=== PATIENT | female | born 1955 | race Caucasian/White ===

== ENCOUNTER 2019-09-06 09:33 | Inpatient (IN) ==
[2019-09-06] MEDS ORDERED: HEPARIN IV ONE (12:55)
[2019-09-06] MEDS ORDERED: HEPARIN 25,000 UNITS/D5W 25,000 UNIT/250 ML IV.SOLN IV SCH (13:00)
[2019-09-06] MEDS ORDERED: VITAMIN D PO SCH (13:00)
--- NOTE | 2019-09-06 13:22 | EKG Report ---
Test Performed on : 09/06/2019 1:17:10 PM Test Reason : dyspnea Blood Pressure : / mmHG Vent. Rate : 078 BPM Atrial Rate : 078 BPM P-R Int : 162 ms QRS Dur : 100 ms QT Int : 374 ms P-R-T Axes : 069 058 079 degrees QTc Int : 426 ms Normal sinus rhythm. Normal ECG When compared with ECG of 18-JUL-2019 14:42, (Unconfirmed) Incomplete right bundle branch block is no longer present Confirmed by Dilan RUSSELL, Tapan Tracey ([id number]) on 09/10/2019 9:25:39 AM
--- NOTE | 2019-09-06 13:36 | CARDIOLOGY CONSULTATION ---
DATE: 09/06/2019 DIAGNOSIS: Previous bioprosthetic mitral and aortic valve replacement. Echocardiogram done today revealed LA thrombus, and the patient was subsequently admitted. HISTORY: Ms. Lew is a 63-year-old lady who I had seen in the clinic, and has multiple medical problems as listed below. She had noticed increasing shortness of breath. She has COPD, and has been taking inhalers as well. She has had chronic back and lower back pain as well which has been secondary to degenerative disease. She is otherwise active. There is no history of any orthopnea or paroxysmal nocturnal dyspnea. She was recently seen in the office and set up for an echocardiogram. For echocardiogram, please see detailed echocardiogram report. The patient was noted to have an LA thrombus into the pulmonary veins. Given this, I recommended patient be admitted to the hospital and undergo further testing. The patient is willing to be admitted. REVIEW OF SYSTEMS: A 14-point review of system was done. GI: There is no history of nausea, vomiting, or diarrhea. There is no history of hematemesis or melena. Central nervous system: No focal weakness to suggest a CVA or TIA. : There is no dysuria or hematuria. Respiratory: There is no history of cough, expectoration, or hemoptysis. PAST MEDICAL HISTORY: Status post bioprosthetic mitral valve replacement on 10/09/2015. In addition, she had 19 mm bioprosthetic Trifecta aortic valve replacement as well. Coronary arteries prior to that valve replacement were normal. This was performed at [facility]. Anticoagulation therapy with Coumadin. COPD. Pulmonary arterial hypertension. Tobacco abuse. Minimal carotid disease. Gastroesophageal reflux disease. Chronic back pain. MEDICATIONS: Home medications include: 1. Coumadin as directed. 2. Aspirin 81 mg a day. 3. Metoprolol 25 mg half tablet twice daily. 4. Pravachol 20 mg a day. 5. Spironolactone 25. 6. Lasix 20 mg a day. 7. Omeprazole 20 mg a day. 8. Trazodone 50 mg half a tablet at bedtime. 9. Amitriptyline 50 mg 3 times a day. 10. Symbicort inhalers. 11. Oxygen if needed. ALLERGIES: She is not known to be allergic to any medications. SOCIAL HISTORY: She has history of smoking. There is no history of alcohol abuse. PHYSICAL EXAMINATION: Vital Signs: Blood pressure 110/60. First and second heart sounds were heard. There was faint murmur. Respiratory: Few scattered wheeze. Abdomen: Soft and nontender. There was no guarding or rigidity. Bowel sounds were heard. Central nervous system: Alert and oriented. She was moving all 4 extremities. Extremities: Examination of extremities revealed no pedal edema. ASSESSMENT AND PLAN: Ms. Toro Lew is a 63-year-old lady with history of bioprosthetic mitral valve 27 mm replaced, and aortic valve 19 mm Trifecta valve on 10/09/2015 at [facility]. She has history of COPD, hypertension, gastroesophageal reflux disease, and chronic pain syndrome, who has noticed increasing shortness of breath. She underwent an echocardiogram which revealed an LA thrombus. Please see detailed echocardiogram report. Given this, we will plan: 1. Plan for a transesophageal echocardiogram in the morning. 2. We will get a CBC/BMP serum magnesium levels, and PT/INR. 3. We will place her on IV heparin and hold Coumadin. 4. The LA mass is encroaching on the pulmonary veins as well. We will also obtain a CT scan of her chest with contrast if her kidney function is normal. 5. COPD. Continue with her home medications. 6. Hyperlipidemia. She is on Pravachol. I have not made any changes. 7. Gastroesophageal reflex. She is on omeprazole. Would recommend continuing with omeprazole. 8. Hypertension. Blood pressure is under control. I have not made any changes at the present time. 9. Thank you for the consult. We will follow hospital course. cc: Mick Jimenez MD
[2019-09-06] MEDS ORDERED: ZOFRAN IV PRN (14:07)
[2019-09-06] MEDS ORDERED: TYLENOL PO PRN (14:07)
[2019-09-06 14:32] LABS: INR 4.11
[2019-09-06 14:35] LABS: HEMATOCRIT 33.3 % (37.0-47.0); HEMOGLOBIN 10.5 g/dL (12.0-16.0); MCH 26.3 PG (27-31); MCHC 31.5 g/dL (33-37); MCV 83.3 FL (81-99); MPV 11.8 FL (7.4-10.4); PROTIME 41.2 Seconds (11.0-16.0); RDW 16.5 % (11.5-14.5); WBC 5.52 X1000 (4.8-10.8)
[2019-09-06 14:54] LABS: PTT > 200.0 Seconds (22.3-41.8)
[2019-09-06 14:57] LABS: AGAP 10; BUN 18 mg/dL (8-22); CALCIUM 9.5 mg/dL (8.8-10.2); CHLORIDE 100 mmol/L (98-107); COSMO 279; CREATININE 0.7 mg/dL (0.5-0.9); ESTIMATED GFR > 60; GLUCOSE 117 mg/dL (70-104); MAGNESIUM 2.1 mg/dL (1.5-2.7); POTASSIUM 4.3 mmol/L (3.5-5.1); SODIUM 138 mmol/L (136-145); TCO2 28 mmol/L (25-35)
[2019-09-06 15:07] LABS: FREE T4 1.13 ng/dL (0.93-1.70); TSH 2.09 uIUmL (0.27-4.20)
[2019-09-06 15:09] LABS: HEMOGLOBIN A1C 4.6 % (4.8-6.0)
--- NOTE | 2019-09-06 15:19 | ECHO REPORT ---
ORDER DATE: 09/06/2019 PROCEDURE: 2D echocardiogram. INTERPRETING PHYSICIAN: Dr. Jimenez. ECHOCARDIOGRAPHIC MEASUREMENTS: 1. Interventricular septum 0.8. 2. Left ventricular posterior wall 0.8. 3. Diastolic diameter 4.4 4. Left atrium 2.7. 5. Aorta 3.0. CONCLUSIONS: 1. Normal right ventricular cavity size and function. 2. Normal left ventricular cavity size. Estimated ejection fraction of 65 to 70 percent. 3. Left atrium is enlarged. 4. There is grade 3 diastolic dysfunction. 5. Bioprosthetic valve in the mitral position was stable. 6. Tricuspid valve was normal. 7. Bioprosthetic valve in the aortic position was stable. 8. Tricuspid valve was normal. 9. There is mild tricuspid regurgitation. Peak velocity across the tricuspid valve was 4.5 m/sec. 10. Pulmonary artery systolic pressure of 90 mmHg. There is severe pulmonary arterial hypertension. 11. There is left atrial enlargement. 12. Peak inflow velocity across the mitral valve was 1.9 m/sec. 13. Mitral valve area by pressure half time was 2.5 cm with a mean gradient of 5 mmHg in keeping with bioprosthetic mitral valve. The bioprosthetic mitral valve leaflets are functioning appropriately. 14. Peak velocity across the aortic valve was 3.2 m/sec with a maximum gradient of 40 mmHg. Mean gradient of 18 mmHg. Aortic valve area of 0.8 sq cm in keeping with bioprosthetic aortic valve associated with mild aortic regurgitation. 15. There is a mass noted in the left atrium measuring 1.4 cm x 1.8 cm echodense structure abutting the pulmonary veins seems to be attached as a pedunculated structure near the pulmonary veins. Would recommend a transesophageal echocardiogram to better evaluate the structure. This could be a thrombus as well. 16. There is no pericardial effusion. cc: Mick Jimenez MD [facility]
[2019-09-06] MEDS: ULTRAM PO SCH (15:52)
[2019-09-06 16:25] LABS: UR AMPHETAMINES QUAL NONE DETECTED (NONE DETECT); UR BARBITUATES QUAL NONE DETECTED (NONE DETECT); UR BENZODIAZEPIN QUAL NONE DETECTED (NONE DETECT); UR CANNABINOIDS QUAL NONE DETECTED (NONE DETECT); UR COCAINE QUAL NONE DETECTED (NONE DETECT); UR METHADONE QUAL NONE DETECTED (NONE DETECT); UR OPIATES QUAL NONE DETECTED (NONE DETECT); UR OXYCODONE QUAL NONE DETECTED (NONE DETECT); UR PCP QUAL NONE DETECTED (NONE DETECT)
--- NOTE | 2019-09-06 16:33 | Diag Imaging Result Doc PS360 ---
EXAM: CT THORAX W/CONTRAST INDICATION: Left atrial mass TECHNIQUE: This exam was performed using automated exposure control, adjustment of mA or kV according to patient size, and/or use of iterative reconstruction technique. COMPARISON: None. FINDINGS: There is advanced pulmonary emphysema with an apical predominance. There is a 6.6 mm noncalcified nodule in the right upper lobe on image 51 of series 3 and there is a 5.5 mm noncalcified nodule in the left upper lobe on image 50 of series 3. These nodules are indeterminate. Follow-up is recommended based on Fleischner Society criteria. There is a small focus of what appears to be fibrosis in the right upper lobe on image 36 of series 3. There is patchy airspace opacity involving the right lower lobe and right middle lobe near the lung base suggesting nonspecific pneumonitis. There is no pleural fluid collection and no pneumothorax. No ventricular or atrial filling defects are identified by CT. There there is a prosthetic aortic and mitral valve. No significant mediastinal or hilar lymphadenopathy is appreciated. There is no cardiomegaly. Limited views of the upper abdomen are essentially unremarkable. IMPRESSION: 1.Advanced pulmonary emphysema. 2.A couple of indeterminate subcentimeter noncalcified nodules in the upper lobes bilaterally. Follow-up is recommended based on Fleischner Society criteria. 3.Patchy airspace opacity at the right lung base as described suggesting nonspecific pneumonitis. 4.No left atrial filling defect identified by CT. Electronically signed by Michael Aquino 09/06/2019 4:31 PM
--- NOTE | 2019-09-06 18:53 | HISTORY AND PHYSICAL ---
PRIMARY CARE PROVIDER: Krupa Dobbins MD CHIEF COMPLAINT: She is actually a direct admit due to a left atrial mass that was found on echocardiogram today. HISTORY OF PRESENT ILLNESS: Ms. Toro Lew is a 63-year-old female with a medical history of hypertension, GERD, anxiety, depression, COPD on 2 L of oxygen at home, pulmonary artery hypertension, and chronic back pain who states that she was going in today for a routine echocardiogram, but was sent here for admission due to the thrombus that was found in the left atrium. She states that she has got chest pain all the time. It is usually in her right ribs. It has been going on for years. She also has been recently treated for bronchitis where she was coughing up dark ross phlegm, was on antibiotics for that since last Tuesday. Other than that, she states she has not had any other complaint. So she has been admitted to treat this with a heparin drip for now. Apparently, she has been on Coumadin for her mitral valve replacement and aortic valve replacement. PAST MEDICAL HISTORY: 1. Hypertension. 2. GERD. 3. Anxiety, depression. 4. COPD on 2 L oxygen. 5. Pulmonary artery hypertension. 6. Chronic back pain. 7. Minimal carotid disease. 8. Grade 3 diastolic dysfunction. SURGICAL HISTORY: 1. MVR, AVR mechanical valves in 2015 at [place]. 2. Right inguinal hernia repair. SOCIAL HISTORY: Greater than 1-khqo-wci-day smoker and started smoking at the age of 11. Denies alcohol or illicit drug use. She is and does not work. FAMILY HISTORY: Mother OR at 56. Father had diabetes. ALLERGIES: No known drug allergies. HOME MEDICATIONS: 1. Coumadin 5 mg p.o. nightly. 2. Elavil 100 mg p.o. nightly. 3. Potassium chloride 10 mEq p.o. nightly. 4. Pravastatin 20 mg p.o. nightly. 5. Aspirin 81 mg p.o. daily. 6. Vitamin B12 at 1000 mcg p.o. daily. 7. Desyrel 50 mg or 1/2 tablet to 1 tablet at night. 8. Lasix 20 mg p.o. daily. 9. Metoprolol tartrate 12.5 mg p.o. twice daily. 10. Omeprazole 20 mg p.o. daily. 11. Spironolactone 25 mg p.o. daily. 12. Symbicort 160/4.5 inhaled twice daily. 13. Ultram 50 mg p.o. t.i.d. 14. Vitamin D2 at 50,000 units p.o. every 7 days. 15. Prednisone 10 mg p.o. twice daily. REVIEW OF SYSTEMS: Fourteen-point review of systems are complete and all were negative except for those mentioned above in HPI. PHYSICAL EXAMINATION: VITAL SIGNS: Temperature 98 degrees, heart rate 73, respiratory rate 16, blood pressure 117/63, and O2 saturation 92% on room air. GENERAL: Ms. Toro Lew is a 63-year-old female. She is in no acute distress. She is able to answer questions appropriately. HEENT: Atraumatic, normocephalic. Pupils equal, round, reactive to light. Extraocular movements intact. Mucous membranes are moist. NECK: Trachea midline. CARDIOVASCULAR: S1, S2. Regular rate and rhythm. No rubs, gallops, murmurs. No lower extremity edema. There are +2 dorsalis and radial pulses. Negative JVD or carotid bruits. PULMONARY: Clear to auscultation, bilateral breath sounds. No accessory muscle use or work of breathing noted. GASTROINTESTINAL: Soft, nontender, nondistended. Positive bowel sounds x4. EXTREMITIES: Moves all extremities equally. Full range of motion. NEUROLOGIC: A and O x3. Follows commands. Sensory is intact. SKIN: Warm, dry, and intact except for she has got multiple bruises all over her arms. LABORATORY DATA: White blood cells 5000, hemoglobin 10, hematocrit 33, platelet count 250,000. INR is 4.11. PTT is greater than 200. D-dimer 0.38. Sodium 138, potassium 4.3, BUN 18, creatinine 0.7, glucose 117. Hemoglobin A1c is 4.6, calcium 9.5, magnesium 2.1. CRP 6.15. ProBNP 218, lactate 1.8. TSH 2.09, free T4 is 1.13. IMAGING: Echocardiogram, mass noted in the left atrium of 1.4 cm x 1.8 cm. Echodense structure abutting the pulmonary vein seemed to be attached to the pedunculated structure near the pulmonary vein. Pulmonary artery systolic pressure is 90. Ejection fraction 65% to 70%. There is grade 3 diastolic dysfunction. ASSESSMENT AND PLAN: 1. Left atrial mass or thrombus. She is going to be started on heparin drip. Have a transesophageal echocardiogram tomorrow, so nothing by mouth after midnight. 2. Grade 3 diastolic dysfunction. 3. Pulmonary artery hypertension with a pressure of 90 mmHg. 4. Hypertension. Home medications have been resumed. 5. Gastroesophageal reflux disease. Continue proton pump inhibitor. 6. Chronic obstructive pulmonary disease. We will do 2 liters oxygen that she uses at home. 7. Tobacco abuse cessation discussed.. 8. Mitral valve replacement, aortic valve replacement mechanical valve in 2014. Has been on Coumadin therapy. INR is at 4.11. We will do daily INR. Dictated by ZORA Scott for Edwardo Farnsworth MD Addendum: Patient seen and examined by myself. Agree with ZOAR note. It reflects my assessment and plan. Patient is being admitted to hospital as direct admission from Cardiology for left atrial mass noted in transthoracic echocardiogram. Cardiology will be consulted and will perform a SAMAN tomorrow. Will continue with heparin drip. cc: ZORA Scott MD [facility]
[2019-09-06] MEDS: SYMBICORT 160/4.5 MICROGM INHALER INH SCH (20:07)
[2019-09-06] MEDS: PRAVACHOL PO SCH (21:25)
[2019-09-06] MEDS: DESYREL PO SCH (21:25)
[2019-09-06] MEDS: ELAVIL PO SCH (21:25)
[2019-09-06] MEDS: LOPRESSOR PO SCH (21:26)
[2019-09-06] MEDS: NICODERM PATCH TD SCH (21:27)
[2019-09-07 06:00] LABS: BASO# 0.04 X1000 (0.0-0.2); BASO% 0.8 % (0.0-0.8); EOS# 0.13 X1000 (0.0-0.7); EOS% 2.5 % (0.0-10.0); HEMATOCRIT 32.5 % (37.0-47.0); HEMOGLOBIN 10.1 g/dL (12.0-16.0); IMM GRAN# 0.04 X1000 (0.0-0.04); IMM GRAN% 0.8 % (0.0-0.5); LYMPH# 1.66 X1000 (1.2-3.4); MCH 25.4 PG (27-31); MCHC 31.1 g/dL (33-37); MCV 81.9 FL (81-99); MONO# 0.81 X1000 (0.11-0.59); MONO% 15.6 % (1.7-9.3); MPV 11.3 FL (7.4-10.4); NEUT% 48.3 % (42.2-75.2); PLT 241 X1000 (130-400); RBC 3.97 XMIL (4.2-5.4); RDW 16.4 % (11.5-14.5); WBC 5.18 X1000 (4.8-10.8)
[2019-09-07] MEDS: ULTRAM PO SCH ×3 (06:08→16:36)
[2019-09-07 06:29] LABS: AGAP 11; ALB/GLOB RATIO 1.2; ALBUMIN 3.2 g/dL (3.5-5.0); ALKALINE PHOSPHATASE 66 U/L (32-104); BUN 12 mg/dL (8-22); CALCIUM 8.9 mg/dL (8.8-10.2); CHLORIDE 99 mmol/L (98-107); COSMO 271; CREATININE 0.6 mg/dL (0.5-0.9); ESTIMATED GFR > 60; GLUCOSE 79 mg/dL (70-104); GOT 21 U/L (10-30); GPT 20 U/L (10-36); POTASSIUM 4.1 mmol/L (3.5-5.1); SODIUM 136 mmol/L (136-145); TCO2 26 mmol/L (25-35); TOTAL BILIRUBIN < 0.15 mg/dL (0.20-1.00); TOTAL PROTEIN 5.8 g/dL (6.3-8.3)
[2019-09-07 06:37] LABS: INR 2.48; PROTIME 27.5 Seconds (11.0-16.0)
--- NOTE | 2019-09-07 07:23 | Diag Imaging Result Doc PS360 ---
EXAM: CHEST-PORTABLE INDICATION: r/o pna TECHNIQUE: One view COMPARISON: 07/18/2019 FINDINGS: The lungs are hyperinflated suggesting COPD, stable. By plain radiograph, the lungs appear clear. No pneumothorax or pleural fluid collection is identified. Cardiac silhouette is stable. IMPRESSION: COPD changes but no definite acute pathology by plain radiograph. Electronically signed by Michael Aquino 09/07/2019 7:21 AM
[2019-09-07] MEDS: SYMBICORT 160/4.5 MICROGM INHALER INH SCH ×2 (08:28→19:38)
--- NOTE | 2019-09-07 08:30 | Diag Imaging Result Doc PS360 ---
EXAM: US ABDOMEN-COMPLETE INDICATION: LA Mass, rule out Renal and Liver abnormality COMPARISON: None. FINDINGS: The gallbladder appears normal with no stones, wall thickening, or pericholecystic fluid. The common bile duct is normal in diameter. Sonographic Sanches's sign was reported to be negative. The liver is grossly unremarkable. No discrete hepatic mass is identified. Portal venous flow is hepatopetal. Much of the pancreas is obscured by bowel gas. The visualized portion is unremarkable. The visualized portions of the aorta and IVC are grossly unremarkable. There are calcified granulomata in the spleen. The spleen is unremarkable, otherwise. The kidneys are grossly unremarkable. IMPRESSION: Essentially unremarkable abdominal ultrasound. Electronically signed by Michael Aquino 09/07/2019 8:28 AM
[2019-09-07] MEDS: LASIX PO SCH (08:51)
[2019-09-07] MEDS: NICODERM PATCH TD SCH (08:51)
[2019-09-07] MEDS: LOPRESSOR PO SCH ×2 (08:51→20:17)
[2019-09-07] MEDS: ASPIRIN EC PO SCH (08:51)
[2019-09-07] MEDS: VITAMIN B-12 PO SCH (08:51)
[2019-09-07] MEDS: ALDACTONE PO SCH (08:52)
[2019-09-07] MEDS: PRILOSEC PO SCH (08:52)
--- NOTE | 2019-09-07 11:12 | PROGRESS NOTE ---
DATE: 09/07/2019 SUBJECTIVE: Patient reports feeling fine. Denies any chest pain, any chest pressure or palpitations. OBJECTIVE: Vital Signs: Temperature 98.5 degrees, heart rate 79, respiratory rate 22, blood pressure 115/61, O2 saturation 97% on room air. General: This is a 63-year-old female, looking older than her stated age, lying in bed, in no acute distress. Cardiovascular: S1, S2 heard. No murmurs, gallops, or rubs. Regular rate and rhythm. Respiratory: Clear bilaterally to auscultation. No work of breathing or using accessory muscles. Abdomen: Soft, nontender to palpation. Bowel sounds present. No organomegaly. Extremities: No clubbing, cyanosis or edema. Peripheral pulses present in both legs. Neurological: Patient alert and oriented x3. Moves 4 extremities. LABORATORY DATA: White cell count 5.18, hemoglobin 10.1, hematocrit 32.5, platelets 241,000. Normal BMP. ASSESSMENT AND PLAN: 1. Left atrial mass or thrombus. Patient has been started on heparin drip. Now has been on hold because of prolonged PTT. The patient is going to have a transesophageal echo today. We will see what it shows. 2. Pulmonary arterial hypertension. Aware. Cardiology is following. 3. Gastroesophageal reflux disease. We will continue with Protonix. 4. Chronic obstructive pulmonary disease. Patient is on home oxygen. Not in any exacerbation. We will continue to monitor. 5. Tobacco abuse. Patient has been advised to quit smoking. 6. Mitral valve replacement with aortic valve replacement, mechanical, in 2014. Aware. The patient is not on any warfarin, is on heparin drip. We will continue to monitor. 7. Disposition. We will continue to follow leads from Cardiology. cc: Edwardo Farnsworth MD
[2019-09-07] MEDS ORDERED: DIPRIVAN 1% ONE (11:51)
[2019-09-07] MEDS ORDERED: XYLOCAINE-MPF 1% 5 ML ONE (11:51)
[2019-09-07] MEDS ORDERED: NS 1,000 ML ONE (11:52)
[2019-09-07] MEDS ORDERED: ANESTHESIA PB SET 88 IN 5742 ONE (11:52)
--- NOTE | 2019-09-07 14:10 | ECHO REPORT ---
ORDER DATE: 09/07/2019 INTERPRETING PHYSICIAN: Dr. Jimenez. PROCEDURE: Transesophageal echocardiogram. DESCRIPTION OF PROCEDURE: The patient was brought to the cardiac catheterization laboratory to evaluate for left atrial mass. Informed consent was obtained. Patient's oropharynx was anesthetized using Cetacaine spray. Propofol was used to anesthetize the patient. Please see detailed anesthesia records. A transesophageal probe was easily passed into the esophagus and ultrasound pictures were obtained. There were no complications. FINDINGS: 1. Bioprosthetic valve in the mitral position was stable. 2. Bioprosthetic aortic valve was stable. 3. Tricuspid valve was normal. 4. Pulmonic valve was normal. 5. Normal left ventricular cavity size. Estimated ejection fraction of 60%. 6. Left atrium was evaluated in detail, the left atrial appendage could not be visualized, it was probably ligated during her surgery. There was protrusion noted into the left atrium between the superior and inferior pulmonary vein on the right side which was part of the wall. There was no mobile mass noted. 7. Right atrium was normal. Lipomatous hypertrophy of the interatrial septum was noted. 8. Tricuspid valve was normal. 9. Ascending aorta was mildly dilated. 10. The pulmonary veins were dilated, all 4 of them. 11. Pulmonary arteries were dilated. 12. Doppler studies revealed mild tricuspid regurgitation. 13. There is no aortic stenosis. There is mild aortic regurgitation. 14. The mitral valve is functioning appropriately, bioprosthetic aortic valve is functioning appropriately. 15. Descending aorta had layered plaque. CONCLUSIONS: 1. There was no obvious left atrial mass noted. What was seen on the 2D echocardiogram was the indentation of the left atrial wall between the right superior and inferior pulmonary vein. This was artifactual. The left atrial appendage was ligated during surgery, and not visualized. 2. Bioprosthetic mitral valve functioning appropriately. 3. Bioprosthetic aortic valve functioning appropriately associated with mild aortic regurgitation. 4. There is no obvious intracardiac mass or thrombus seen. cc: MD Melanie Wong PA
[2019-09-07] MEDS: TESSALON PO PRN ×2 (14:14→20:17)
[2019-09-07] MEDS: PRAVACHOL PO SCH (20:17)
[2019-09-07] MEDS: DESYREL PO SCH (20:17)
[2019-09-07] MEDS: ELAVIL PO SCH (20:17)
[2019-09-07] MEDS ORDERED: COUMADIN PO SCH (21:00)
[2019-09-08 05:53] LABS: BASO# 0.02 X1000 (0.0-0.2); BASO% 0.4 % (0.0-0.8); EOS# 0.01 X1000 (0.0-0.7); EOS% 0.2 % (0.0-10.0); HEMATOCRIT 33.6 % (37.0-47.0); HEMOGLOBIN 10.5 g/dL (12.0-16.0); IMM GRAN# 0.05 X1000 (0.0-0.04); LYMPH# 0.88 X1000 (1.2-3.4); LYMPH% 17.4 % (20.5-51.1); MCH 25.4 PG (27-31); MCHC 31.3 g/dL (33-37); MCV 81.2 FL (81-99); MONO# 0.87 X1000 (0.11-0.59); MONO% 17.2 % (1.7-9.3); MPV 11.5 FL (7.4-10.4); NEUT# 3.22 X1000 (1.4-6.5); NEUT% 63.8 % (42.2-75.2); PLT 234 X1000 (130-400); RBC 4.14 XMIL (4.2-5.4); RDW 16.1 % (11.5-14.5); WBC 5.05 X1000 (4.8-10.8)
[2019-09-08] MEDS: ULTRAM PO SCH (06:08)
[2019-09-08 06:10] LABS: INR 1.58; PROTIME 19.2 Seconds (11.0-16.0)
[2019-09-08 06:14] LABS: AGAP 8; ALB/GLOB RATIO 1.4; ALBUMIN 3.7 g/dL (3.5-5.0); ALKALINE PHOSPHATASE 69 U/L (32-104); BUN 14 mg/dL (8-22); CALCIUM 8.7 mg/dL (8.8-10.2); CHLORIDE 92 mmol/L (98-107); COSMO 259; CREATININE 0.7 mg/dL (0.5-0.9); ESTIMATED GFR > 60; GLUCOSE 87 mg/dL (70-104); GOT 20 U/L (10-30); GPT 20 U/L (10-36); POTASSIUM 4.1 mmol/L (3.5-5.1); SODIUM 129 mmol/L (136-145); TCO2 29 mmol/L (25-35); TOTAL BILIRUBIN 0.17 mg/dL (0.20-1.00); TOTAL PROTEIN 6.3 g/dL (6.3-8.3)
[2019-09-08] MEDS: NICODERM PATCH TD SCH (08:14)
[2019-09-08] MEDS: LASIX PO SCH (08:14)
[2019-09-08] MEDS: ALDACTONE PO SCH (08:14)
[2019-09-08] MEDS: PRILOSEC PO SCH (08:14)
[2019-09-08] MEDS: VITAMIN B-12 PO SCH (08:14)
[2019-09-08] MEDS: ASPIRIN EC PO SCH (08:14)
[2019-09-08] MEDS: LOPRESSOR PO SCH (08:14)
[2019-09-08] MEDS: SYMBICORT 160/4.5 MICROGM INHALER INH SCH (08:18)
[2019-09-08 10:50] VITALS: BP 93/52
--- NOTE | 2019-09-08 15:58 | DISCHARGE SUMMARY ---
ADMISSION DATE: 09/06/2019 DISCHARGE DATE: 09/08/2019 ADMISSION DIAGNOSES: 1. Left atrial mass or thrombus. 2. Grade 3 diastolic dysfunction. 3. Pulmonary artery hypertension. 4. Hypertension. 5. GERD. 6. COPD. 7. Tobacco abuse. 8. Mitral valve replacement, aortic valve replacement, both mechanical valves in 2014, on Coumadin therapy. DISCHARGE DIAGNOSES: 1. Left atrial mass with thrombus, was on a heparin drip, had a SAMAN. 2. Pulmonary artery hypertension. 3. GERD. 4. COPD. No exacerbation on home oxygen. 5. Tobacco abuse. Discussion at least 6 minutes of tobacco cessation. MVR, AVR mechanical valves in 2015 on Coumadin therapy, but that was off while she was on heparin drip. 6. Apparently there was no true mass. There was protrusion into the left atrium between the superior and inferior pulmonary vein on the right, which was part of the wall, and a lipomatous hypertrophy of the interarterial septum was noted. 7. Pneumonitis. Cefdinir will be sent home with patient. CONSULTS: Cardiology, Dr. Jimenez, who did her initial transthoracic echocardiogram and also performed her transesophageal echocardiogram, who also initiated the direct admit. SURGERIES OR PROCEDURES: She had a transesophageal echocardiogram performed on the 07 of September, ejection fraction 60%. Left atrium evaluation. Apparently, they could not visualize the left atrial appendage. Apparently it must have been ligated during her surgery in the past. What was noted is there was a protrusion noted into the left atrium between the superior and inferior pulmonary vein on the right, which was part of the wall. There was no mobile mass noted. The right atrium is normal. There is lipomatous hypertrophy of the interarterial septum. Ascending aorta was mildly dilated. Pulmonary veins were dilated. Pulmonary arteries were dilated. Her mitral valve and aortic valve mechanical valves were functioning appropriately and the descending aorta had some layering plaque. HOSPITAL COURSE: Ms. Toro Lew is a 63-year-old female who presented as an outpatient for echocardiogram by Dr. Jimenez on September 06. It was during that evaluation that they felt there was a left atrial mass and so she was directly admitted, placed on a heparin drip in preparation for transesophageal echocardiogram for further evaluation of this mass. The transesophageal echocardiogram revealed that there were no true masses, actually part of her wall. It was just some hypertrophy and she was deemed appropriate for discharge home the following day. DISCHARGE VITAL SIGNS: Temperature 100.2 degrees, heart rate 84, respiratory rate 15, blood pressure 93/52, 98% on 2 L nasal cannula. She wears home oxygen. LABORATORY DATA: White blood cells 5000, hemoglobin 10, hematocrit 33, platelet count 234,000. INR was 1.58. Sodium 129, potassium 4.1, BUN 14, creatinine 0.7, glucose 87, calcium 8.7, bilirubin 0.17, AST 20, ALT 20, albumin 3.7. Urine drug screen negative. Micro, no growth in the blood cultures. IMAGING: Original echo, EF 65 to 70%. Her pulmonary pressure was 90 mmHg and there was a mass that was noted in the left atrium measuring 1.4 cm x 1.8 cm abutting the pulmonary veins. Then she had the SAMAN which ruled out right atrial mass. Chest CT, advanced pulmonary emphysema. There were some nodules bilaterally in the upper lobes, possible pneumonitis. No left atrial defect, filling defect was identified. Chest x-ray, COPD but no acute findings. Abdominal ultrasound essentially unremarkable. EKG normal sinus rhythm, rate 78, QTc 426. Carotid velocities, unable to be deciphered. DISCHARGE MEDICATIONS: 1. Coumadin 5 mg p.o. nightly. 2. Elavil 100 mg p.o. nightly. 3. Potassium chloride 10 mEq p.o. nightly. 4. Pravastatin 20 mg p.o. nightly. 5. Aspirin enteric-coated 81 mg p.o. daily. 6. Vitamin B12, 1000 mcg p.o. daily. 7. Trazodone 25 to 50 mg p.o. nightly. 8. Lasix 20 mg p.o. daily. 9. Metoprolol tartrate 12.5 mg p.o. twice daily. 10. Omeprazole 20 mg p.o. daily. 11. Spironolactone 25 mg p.o. daily. 12. Symbicort 160/4.5, 1 puff inhaled twice daily. 13. Ultram 50 mg p.o. t.i.d. 14. Vitamin D2 54163 units p.o. every Tuesday. 15. Cefdinir 300 mg p.o. twice daily. 16. Combivent 4 g inhaled every 4 hours p.r.n. 17. Prednisone taper. DISCHARGE DIET: Heart healthy. DISCHARGE ACTIVITY: As tolerated. PHYSICIAN FOLLOWUP: Dr. Jimenez. DISCHARGE INSTRUCTIONS: Take medications as prescribed. Follow up with the physician. Any chest pain, shortness of breath, fever, report to your primary care provider or your jackscrew man or to the emergency department. DISCHARGE DISPOSITION: Home. Dictated by ZORA Scott for Edwardo Farnsworth MD Addendum: Patient seen and examined by myself. Agree with ZORA note. It reflects my assessment and plan. Patient is being discharged in stable condition. Will be seen by Cardiology in 4 weeks. cc: ZORA Scott MD [facility]
--- NOTE | 2019-09-10 14:56 | Carotid Study ---
DATE: 09/06/2019 STUDY: Bilateral duplex and color flow imaging of the carotid arteries performed using the [employer] Vivid E9 ultrasound system with a 9 L-D transducer. REFERRING PHYSICIAN: Dr. Jimenez. INDICATIONS: Carotid stenosis. FINDINGS: The velocities in cm/sec of both carotid systems were reviewed. There was forward flow in the right vertebral artery. The right ICA/CCA ratio is 1.10, corresponding to a percent stenosis of 0% to 39%. There was forward flow in the left vertebral artery. The left ICA/CCA ratio is 1.11, corresponding to a percent stenosis of 0% to 39%. INTERPRETATION: Mild atherosclerotic disease of the distal common and internal carotid arteries bilaterally, without evidence of a hemodynamically significant lesion in either carotid system. cc: MD Mick Mg MD
== END 2019-09-08 11:19 | disposition home or self-care (01) | DRG 302 ==
LOC: ECH 09:33 → SUATTDRO 12:31 → DIRADM 12:31 → 2N 13:01
PROVIDERS: ATTEND Internal Medicine

== ENCOUNTER 2019-10-24 17:44 | Inpatient (IN) ==
--- NOTE | 2019-10-24 18:03 | PROVIDER DOCUMENTATION ---
HPI-Respiratory General - General Stated Complaint: sob,weakness Time Seen by Provider: 10/24/19 17:56 Source: patient, EMS Allergies/Adverse Reactions: Patient Allergies Allergy/AdvReac Type Severity Reaction Status Date / Time No Known Allergies Allergy Verified 10/24/19 22:01 Home Medications: Home Medication List Medication Instructions Recorded Confirmed Last Taken Type Furosemide [Lasix] 20 mg PO QAM 07/16/15 10/24/19 09/05/19 08:00 History 20 mg Omeprazole 20 mg PO DAILY 07/16/15 10/24/19 09/06/19 07:00 History 20 mg Tramadol [Ultram] 50 mg PO TID 07/16/15 10/24/19 09/06/19 07:00 History 50 mg Amitriptyline [Elavil] 100 mg PO QHS 11/04/15 10/24/19 09/05/19 21:00 History 100 mg Aspirin EC 81 mg PO DAILY 11/04/15 10/24/19 07/18/19 History 81 mg Budesonide/Formoterol Fumarate 1 puff IH BID 11/04/15 10/24/19 07/18/19 History [Symbicort 160-4.5 Mcg Inhaler] 1 puff Metoprolol Tartrate 12.5 mg PO BID 11/04/15 10/24/19 09/06/19 07:00 History Warfarin [Coumadin] 5 mg PO QHS 11/04/15 10/24/19 09/05/19 21:00 History 5 mg Cyanocobalamin (Vitamin B-12) 1,000 mcg PO DAILY 12/22/15 10/24/19 09/06/19 08:00 History [B-12] Ergocalciferol (Vitamin D2) 50,000 unit PO Q7D 07/18/19 10/24/19 07/14/19 History [Vitamin D2] 21186 iu Pravastatin Sodium 20 mg PO QHS 07/18/19 10/24/19 09/05/19 21:00 History 20 mg Trazodone [Desyrel] 50 mg PO DIRECTED 07/18/19 10/24/19 09/05/19 21:00 History 25 mg Ipratropium/Albuterol Sulfate 4 gm INHALATION Q4H PRN PRN #1 09/08/19 10/24/19 Unknown Rx [Combivent Respimat Inhal [place]] aer.[email or web address] - History of Present Illness-Resp Nature of Presenting Problem: Patient is a 64 year old white female with history of severe COPD requiring home oxygen who presents by [facility] with increasing shortness of breath, weakness, fever, and body aches since yesterday. Followed by Dr. Dobbins. Patient received albuterol treatment enroute. EMS reports oxygen sat of 96% on 2liters. Review of Systems - Adult - REVIEW OF SYSTEMS - ADULT Constitutional: reports: fatique. denies: chills, fever Eyes: denies: discharge Ears, Nose, Mouth & Throat: denies: ear pain, throat pain Cardiovascular: denies: chest pain Respiratory: reports: cough, shortness of breath Gastrointestinal: denies: abdominal pain, nausea, vomiting Genitourinary: denies: dysuria Musculoskeletal: reports: no symptoms reported Integumentary: denies: rash Neurological: reports: no symptoms reported Psychiatric: reports: anxiety Endocrine: reports: no symptoms reported Hematologic/Lymphatic: reports: no symptoms reported Allergic/Immunologic: reports: no symptoms reported All Other Systems: Reviewed and Negative Past History - Adult - PAST MEDICAL HISTORY-ADULT Review of Records: reports: Old Records Reviewed, Nursing Assessment Review, Medications Reviewed Major Childhood Illnesses: reports: denies history Cardiovascular: reports: heart valve problem Respiratory: reports: COPD Gastrointestinal: reports: denies history Obstetrical/Gynecological: reports: denies history Genitourinary: reports: denies history Musculoskeletal: reports: denies history Neurological: reports: denies history Psychiatric: reports: denies history Endocrine/Immune: reports: denies history - PRIOR SURGERIES/PROCEDURES Surgical/Procedure History: reports: hysterectomy, other (heart valve replacements X 2 (porcine)) - FAMILY HISTORY Family History: reviewed, not pertinent - SOCIAL HISTORY Smoking: less than 1 pack/day (1/2 ppd) Substance Use: denies Alcohol Use Frequency: occasionally Living Situation: family Physical Exam-General - PHYSICAL EXAM-ADULT Initial Vital Signs Reviewed: Yes - CONSTITUTIONAL General Appearance: alert, no apparent distress, cachetic - EYES Eyes: other (clear) - HEAD, EARS, NOSE, MOUTH & THROAT HENMT: moist mucous membranes - NECK Neck: supple - RESPIRATORY Respiratory: no respiratory distress, no accessory muscle use, decreased breath sounds - CARDIOVASCULAR Cardiovascular: regular rate, rhythm - GASTROINTESTINAL (ABDOMEN) Abdominal Exam: non tender, soft - LYMPHATIC Lymphatic: no adenopathy - MUSCULOSKELETAL Back Exam: normal inspection, no CVA tenderness Extremity: normal range of motion, non-tender - SKIN Integumentary: normal color, normal turgor, warm/dry - NEUROLOGIC Neurologic: grossly normal - PSYCHIATRIC Psych/Mental Status: oriented x 3, anxious Progress - PLAN OF CARE/RESULTS Progress/Plan/Lab Results: Vital Signs - 8 hr 10/24/19 18:36 10/24/19 19:53 Temperature 99.0 F 100 F H Pulse Rate 98 H 107 H Respiratory Rate 20 22 Blood Pressure 126/79 145/88 O2 Sat by Pulse Oximetry 99 97 10/24/19 19:33 Influenza Screen - Final Nasopharyngeal Laboratory Results - last 24 hr 10/24/19 10/24/19 10/24/19 20:07 20:07 20:07 WBC RBC Hgb Hct MCV MCH MCHC RDW Std Deviation Plt Count MPV Neut % (Auto) Lymph % (Auto) Iron % (Auto) Eos % (Auto) Baso % (Auto) Neut # (Auto) Lymph # (Auto) Iron # (Auto) Eos # (Auto) Baso # (Auto) PT INR Specimen Type Sample Site pH pCO2 pO2 HCO3 Base Excess Oxyhemoglobin ABG O2 Sat (Calculated) ABG O2 Saturation ABG Carboxyhemoglobin ABG Methemoglobin Joe Test A-a O2 Difference Total Hemoglobin Lactate Liter Flow Blood Gas Modality FiO2 % Sodium 132 L Potassium 4.5 Chloride 92 L Carbon Dioxide 24 L Anion Gap 16 BUN 11 Creatinine 0.6 Estimated GFR/1.73 m2 > 60 BUN/Creatinine Ratio 18 Glucose 76 Calculated Osmolality 263 Calcium 9.5 Total Bilirubin 0.55 AST 19 ALT 18 Alkaline Phosphatase 73 Troponin T High Sens Ffj-A-Dadonnjpaob Pept 691 H Total Protein 6.5 Albumin 3.7 Globulin 2.8 Albumin/Globulin Ratio 1.3 Plasma Lactate 1.2 10/24/19 10/24/19 10/24/19 20:07 20:07 20:07 WBC 15.32 H RBC 4.51 Hgb 11.4 L Hct 36.0 L MCV 79.8 L MCH 25.3 L MCHC 31.7 L RDW Std Deviation 17.8 H Plt Count 293 MPV 11.6 H Neut % (Auto) 87.7 H Lymph % (Auto) 4.3 L Iron % (Auto) 7.7 Eos % (Auto) 0.1 Baso % (Auto) 0.2 Neut # (Auto) 13.44 H Lymph # (Auto) 0.66 L Iron # (Auto) 1.18 H Eos # (Auto) 0.01 Baso # (Auto) 0.03 PT 32.4 H INR 3.04 Specimen Type Sample Site pH pCO2 pO2 HCO3 Base Excess Oxyhemoglobin ABG O2 Sat (Calculated) ABG O2 Saturation ABG Carboxyhemoglobin ABG Methemoglobin Joe Test A-a O2 Difference Total Hemoglobin Lactate Liter Flow Blood Gas Modality FiO2 % Sodium Potassium Chloride Carbon Dioxide Anion Gap BUN Creatinine Estimated GFR/1.73 m2 BUN/Creatinine Ratio Glucose Calculated Osmolality Calcium Total Bilirubin AST ALT Alkaline Phosphatase Troponin T High Sens 32 H Fun-S-Lxtdvbjygji Pept Total Protein Albumin Globulin Albumin/Globulin Ratio Plasma Lactate 10/24/19 20:47 WBC RBC Hgb Hct MCV MCH MCHC RDW Std Deviation Plt Count MPV Neut % (Auto) Lymph % (Auto) Iron % (Auto) Eos % (Auto) Baso % (Auto) Neut # (Auto) Lymph # (Auto) Iron # (Auto) Eos # (Auto) Baso # (Auto) PT INR Specimen Type ARTERIAL Sample Site R RADIAL pH 7.43 pCO2 38 pO2 85 HCO3 25.6 Base Excess 0.9 Oxyhemoglobin 94.6 L ABG O2 Sat (Calculated) 14.9 L ABG O2 Saturation 96.2 ABG Carboxyhemoglobin 0.80 ABG Methemoglobin 0.9 Joe Test YES A-a O2 Difference 67.0 Total Hemoglobin 11.1 L Lactate 0.60 Liter Flow 2.0 Blood Gas Modality CANNULA FiO2 % 28.0 Sodium Potassium Chloride Carbon Dioxide Anion Gap BUN Creatinine Estimated GFR/1.73 m2 BUN/Creatinine Ratio Glucose Calculated Osmolality Calcium Total Bilirubin AST ALT Alkaline Phosphatase Troponin T High Sens Exa-I-Esuperoooii Pept Total Protein Albumin Globulin Albumin/Globulin Ratio Plasma Lactate Orders Category Date Time Status Saline Loc NOW Care 10/24/19 17:56 Active CHEST-PORTABLE [RAD] Stat Exams 10/24/19 17:56 Completed ABG [RESP] Routine Lab 10/24/19 20:47 Completed BLOOD CULTURE [BLDCUL] Stat Lab 10/24/19 20:08 Results CBC WITH DIFF [HEME] Stat Lab 10/24/19 20:07 Completed COMPREHENSIVE METABOLIC PANEL [CHEM] Stat Lab 10/24/19 20:07 Completed INFLUENZA SCREEN A/B Stat Lab 10/24/19 19:33 Completed LACTATE, PLASMA [CHEM] Stat Lab 10/24/19 20:07 Completed PRO B-NATRIURETIC PEPTIDE Stat Lab 10/24/19 20:07 Completed PT [PROTIME WITH INR] [COAG] Stat Lab 10/24/19 20:07 Completed TROPONIN T HIGH SENSITIVITY Stat Lab 10/24/19 20:07 Completed Albuterol 2.5MG/Ipratrop 0.5MG [Duoneb (A & A)] Med 10/24/19 19:40 Discontinued 3 ml INH NOW ONE CefTRIAXONE [Rocephin] 1 gm Med 10/24/19 20:05 Discontinued 0.9% Sodium Chloride Inj [Ns] 50 ml IV NOW Methylprednisolone Sod Succ [Solu-Medrol] Med 10/24/19 19:39 Discontinued 125 mg IV NOW ONE Aerosol Treatments Routine Oth 10/24/19 19:40 Active Aerosol Treatments Stat Oth 10/24/19 19:40 Active Pulse Oximetry Stat Oth 10/24/19 17:56 Active EKG [EKG] Stat Ther 10/24/19 17:58 Ordered Result Diagrams: 10/24/19 20:07 10/24/19 20:07 - XRAY 1 XRAY Study: Chest XRAY Interpretation: right lower hilar infiltrates - CONSULTS/PCP/HOSPITALIST Notification #1 *Consult/PCP/Hospitalist*: Dr. Guerrero,hospitalist Time Discussed: 22:08 Consult Disposition: Admit Departure - Departure Date of Disposition Decision: 10/24/19 Time of Disposition Decision: 22:11 DIAGNOSIS: COPD exacerbation Pneumonia Qualifiers: Pneumonia type: due to unspecified organism Laterality: right Lung location: lower lobe of lung Qualified Code(s): J18.1 - Lobar pneumonia, unspecified organism Disposition: ADMITTED INPATIENT 09 Certified Medical Emergency: Emergent Condition: Stable Referrals and Follow-Ups: Krupa Dobbins [Primary Care Provider] - - Critical Care Note This patient required my direct & personal management of CC.: No Attestation - Physician/ [place] Attestation Patient care was provided by Advanced Practice Provider:: No The physician spent face to face time with patient:: Yes Advanced Practice Provider documentation review:: Supervising physician onsite and consulted in the evaluation and care of this patient. The physician did have a face to face encounter with the patient.
[2019-10-24] MEDS ORDERED: SOLU-MEDROL IV ONE (19:39)
[2019-10-24] MEDS ORDERED: DUONEB (A & A) INH ONE (19:40)
[2019-10-24] MEDS ORDERED: ROCEPHIN 1 GM in NS 50 ML IV ONE (20:05)
--- NOTE | 2019-10-24 20:09 | Diag Imaging Result Doc PS360 ---
EXAM: CHEST-PORTABLE HISTORY: sob TECHNIQUE: Single view COMPARISON: 10/02/2019 FINDINGS: The lungs are hyperexpanded. The heart is not enlarged. There are sternal wires. There are mild increased interstitial markings. No effusion identified. IMPRESSION: Emphysema with mild pulmonary edema, fibrosis or infiltrates Electronically signed by Nicolás Bryant 10/24/2019 8:06 PM
[2019-10-24 20:36] LABS: INR 3.04; PROTIME 32.4 Seconds (11.0-16.0)
[2019-10-24 20:46] LABS: BASO# 0.03 X1000 (0.0-0.2); BASO% 0.2 % (0.0-0.8); EOS# 0.01 X1000 (0.0-0.7); EOS% 0.1 % (0.0-10.0); HEMOGLOBIN 11.4 g/dL (12.0-16.0); LYMPH# 0.66 X1000 (1.2-3.4); LYMPH% 4.3 % (20.5-51.1); MCH 25.3 PG (27-31); MCHC 31.7 g/dL (33-37); MCV 79.8 FL (81-99); MONO# 1.18 X1000 (0.11-0.59); MONO% 7.7 % (1.7-9.3); MPV 11.6 FL (7.4-10.4); NEUT# 13.44 X1000 (1.4-6.5); NEUT% 87.7 % (42.2-75.2); PLT 293 X1000 (130-400); RBC 4.51 XMIL (4.2-5.4); RDW 17.8 % (11.5-14.5); WBC 15.32 X1000 (4.8-10.8)
[2019-10-24 20:48] LABS: AGAP 16; ALB/GLOB RATIO 1.3; ALBUMIN 3.7 g/dL (3.5-5.0); ALKALINE PHOSPHATASE 73 U/L (32-104); BUN 11 mg/dL (8-22); CALCIUM 9.5 mg/dL (8.8-10.2); CHLORIDE 92 mmol/L (98-107); COSMO 263; CREATININE 0.6 mg/dL (0.5-0.9); ESTIMATED GFR > 60; GLUCOSE 76 mg/dL (70-104); GOT 19 U/L (10-30); GPT 18 U/L (10-36); POTASSIUM 4.5 mmol/L (3.5-5.1); SODIUM 132 mmol/L (136-145); TCO2 24 mmol/L (25-35); TOTAL BILIRUBIN 0.55 mg/dL (0.20-1.00); TOTAL PROTEIN 6.5 g/dL (6.3-8.3)
[2019-10-24 20:55] LABS: ALLEN TEST YES; BE 0.9 mmoll (-3.0-3.0); BLOOD TYPE ARTERIAL; HCO3-(ACT) 25.6 mmoll (20.0-26.0); METHB 0.9 % (0.0-1.5); O2(CT) 14.9 mL/dL (15.0-23.0); O2HB 94.6 % (95.0-99.0); PCO2(98.6) 38 mmHg (35-45); PO2(98.6) 85 mmHg (60-100); SAMPLE BLOOD; SAO2 96.2 % (95.0-100.0); THB 11.1 g/dL (11.5-17.4); pH(98.6) 7.43 (7.35-7.45)
[2019-10-24 20:57] LABS: MODALITY CANNULA
[2019-10-24] MEDS ORDERED: ZITHROMAX 500 MG/NS 500 MG/250 ML IVPB IV ONE (22:13)
[2019-10-24] MEDS ORDERED: TYLENOL PO PRN (23:35)
--- NOTE | 2019-10-24 23:52 | HISTORY AND PHYSICAL ---
PRIMARY CARE PHYSICIAN: Krupa Dobbins MD. REASON FOR ADMISSION: Two-day history of shortness of breath and cough with throbbing headache. HISTORY OF PRESENT ILLNESS: Mrs Toro Lew is a 64-year-old woman with past medical history of hypertension, reflux disease, COPD on 2 L nasal cannula, complicated with pulmonary hypertension, peripheral arterial disease, who comes in status post MVR and AVR, post mechanical valve replacement which are bioprosthetic. Comes in today complaining of a 2- day history of worsening shortness of breath with cough productive of greenish sputum. She is also complaining of a dull throbbing headache which has been bothering her since the onset of these symptoms. Denies any PND, orthopnea, chest pain. Denies any fever or chills. She states she has a longstanding history of chronic dyspnea, but this has gotten worse at rest for a change. She denies any close contact with respiratory illness. No GI or complaints. No focal neurological complaints. She says she is increasingly weak and her appetite has diminished. REVIEW OF SYSTEMS: No photophobia, phonophobia, neck stiffness or blurry vision. He denies any blacking out spells. Otherwise, 12 systems was done, positive findings per HPI. ALLERGIES: None. HOME MEDICATIONS: Elavil 100 mg daily, warfarin 5 mg at bedtime, Tylenol 650 mg q.4 hours p.r.n. tramadol 50 mg t.i.d., trazodone 50 mg as directed, omeprazole 20 mg daily, metoprolol 12.5 mg b.i.d., furosemide 20 mg daily, vitamin D 50,000 international units daily, vitamin B12 daily, aspirin 81 mg daily. SURGICAL HISTORY: Other than the aforementioned heart valve surgery, she also had a right inguinal hernia repair. SOCIAL HISTORY: Smokes 1 pack a day. No alcohol use or drug use. Lives with her . FAMILY HISTORY: Notable for CAD and type 2 diabetes in first-degree relatives. LABORATORY DATA: White count 15,000, H and H 11 and 36, platelets 79,000. with 87% neutrophils. Sodium is 132, BUN 11, creatinine 0.6. Troponin 32, proBNP 691. Lactate is normal. PTT is 32, INR 3.0, pH 7.43, pCO2 is 38, PO2 is 85 on 2 L. Chest film shows emphysema with mild pulmonary edema, fibrosis or infiltrates. Flu swab was negative. PHYSICAL EXAMINATION: VITAL SIGNS: Blood pressure is 145/85, heart rate is 107, temperature is 100 degrees, respiratory rate 20, O2 saturation 97% O2 on 2 L. GENERAL: She is thin, chronically ill, middle-aged white woman who appears older than her stated age. She is in acute respiratory distress with mild pauses when she is talking. NEUROLOGIC: She is alert and oriented to person, place and time. Normal mood and affect. HEENT: Normocephalic, atraumatic. Eyes: JAMAAL, EOMI. She is anicteric and not pale. ENT and oropharyngeal exam is grossly normal. No exudates or erythema. No cyanosis. NECK: No visual thyromegaly. No bruits. She has mild hepatojugular reflux. CHEST: Reveals scattered coarse crepitations in both lung merino, left greater than right. The patient has a barrel shaped chest. CARDIOVASCULAR: First and second heart sounds are heard but distant. I cannot appreciate any clicks, murmurs, rubs. Rhythm is regular. ABDOMEN: Full, soft with no questionable tenderness elicited in the right upper quadrant but no peritoneal signs. Bowel sounds are hypoactive. RECTAL: Deferred at this time. EXTREMITIES: Diminished pulse volumes distally in all extremities. Regular, symmetrical. No edema, clubbing, or cyanosis. NEUROLOGIC: Gross focal deficits. No asterixis. SKIN: She has numerous bruises on the dorsum of her hands and upper extremities. Otherwise, intact muscular exam. Patient is moderately sarcopenic. ASSESSMENT: 1. Community-acquired pneumonia. 2. Chronic obstructive pulmonary disease with emphysema exacerbation. 3. Anemia of chronic inflammation. 4. Hyponatremia. 5. Chronic anticoagulation for mechanical valves. 6. Acute on chronic respiratory failure. PLAN: Patient will be admitted and started on broad-spectrum antibiotics with preferential coverage for the possibility of Pseudomonas due to the fact the patient has extensive structural lung disease. Short-acting bronchodilators have been instituted along with long-acting bronchodilators. Sputum culture will be sent and followed. PT/INR will also be done in view of the fact the patient is going to be on Lovenox, which could alter the patient's INR. I withheld oral inhaled steroids because of the above average risk of this increasing recurrent pneumonias. cc: MD Krupa Romero MD [facility]
[2019-10-25] MEDS: MAXIPIME 2 GM/NS 2 GM/100 ML IVPB IV SCH ×3 (01:02→23:42)
[2019-10-25] MEDS: LEVAQUIN 500 MG/D5W 500 MG/100 ML IVPB IV SCH ×3 (01:30→23:42)
[2019-10-25] MEDS: DUONEB (A & A) INH SCH ×4 (03:45→22:56)
[2019-10-25 05:21] LABS: INR 3.69; PROTIME 37.8 Seconds (11.0-16.0)
[2019-10-25 07:12] LABS: BASO# 0.01 X1000 (0.0-0.2); BASO% 0.1 % (0.0-0.8); HEMATOCRIT 33.8 % (37.0-47.0); HEMOGLOBIN 10.6 g/dL (12.0-16.0); IMM GRAN# 0.02 X1000 (0.0-0.04); IMM GRAN% 0.2 % (0.0-0.5); LYMPH# 0.28 X1000 (1.2-3.4); LYMPH% 2.5 % (20.5-51.1); MCH 24.9 PG (27-31); MCHC 31.4 g/dL (33-37); MCV 79.5 FL (81-99); MONO# 0.14 X1000 (0.11-0.59); MONO% 1.2 % (1.7-9.3); MPV 11.8 FL (7.4-10.4); NEUT# 10.82 X1000 (1.4-6.5); PLT 293 X1000 (130-400); RBC 4.25 XMIL (4.2-5.4); RDW 17.4 % (11.5-14.5); WBC 11.27 X1000 (4.8-10.8)
[2019-10-25 07:24] LABS: AGAP 14; BUN 13 mg/dL (8-22); CHLORIDE 94 mmol/L (98-107); COSMO 265; CREATININE 0.7 mg/dL (0.5-0.9); ESTIMATED GFR > 60; GLUCOSE 110 mg/dL (70-104); POTASSIUM 4.9 mmol/L (3.5-5.1); SODIUM 132 mmol/L (136-145); TCO2 24 mmol/L (25-35)
[2019-10-25] MEDS ORDERED: BROVANA NEB ONE (07:38)
[2019-10-25 07:39] LABS: LYMPHS 2 % (21-51); SEGS 98 % (42-75)
[2019-10-25] MEDS: BROVANA NEB INH SCH ×2 (08:08→22:56)
[2019-10-25] MEDS ORDERED: MUCINEX PO SCH (09:00)
[2019-10-25] MEDS: PRILOSEC PO SCH (09:08)
[2019-10-25] MEDS: ULTRAM PO SCH ×3 (09:08→17:37)
[2019-10-25] MEDS: LASIX PO SCH (09:09)
[2019-10-25] MEDS: VITAMIN B-12 PO SCH (09:09)
[2019-10-25] MEDS: ASPIRIN EC PO SCH (09:09)
[2019-10-25] MEDS: LOPRESSOR PO SCH ×2 (09:11→22:13)
[2019-10-25] MEDS ORDERED: PNEUMOVAX 23 IM ONE (13:21)
[2019-10-25 17:26] LABS: URINE SOURCE CLEAN CATCH
[2019-10-25 17:31] LABS: BILIRUBIN URINE NEGATIVE (NEGATIVE); BLOOD URINE TRACE (NEGATIVE); COLOR YELLOW; GLUCOSE URINE NEGATIVE (NEGATIVE); KETONE URINE NEGATIVE (NEGATIVE); LEUKOCYTES URINE NEGATIVE (NEGATIVE); NITRITE URINE NEGATIVE (NEGATIVE); PROTEIN URINE TRACE mg/dL (NEGATIVE); TURBIDITY URINE CLEAR (CLEAR); UROBILINOGEN URINE NORMAL (NORMAL)
[2019-10-25 17:32] LABS: UR EPITHELIAL CELLS <10 /HPF (<10); URINE BACTERIA NEGATIVE /HPF; URINE RBC <10 /HPF (<10); URINE WBC <10 /HPF (<10)
[2019-10-25] MEDS: SOLU-MEDROL IV SCH (17:40)
--- NOTE | 2019-10-25 19:06 | PROGRESS NOTE ---
DATE: 10/25/2019 SUBJECTIVE: Patient has no major complaints. She is coughing up a little bit. Still seems weak. Still seems short of breath. OBJECTIVE: Vital signs: Blood pressure is 113/70, heart rate of 92, respiratory rate 18, temperature 98.6 degrees, 100% on 2 L. Cardiovascular: Regular rate and rhythm. Pulmonary: Bilateral breath sounds, clear to auscultation. Her breathing I would say is diminished throughout, but no wheezes or rales at this point. GI: Soft, nontender, nondistended. Bowel sounds were positive. LABORATORY DATA: White count 11, down from 15, hemoglobin and hematocrit 10 and 33, platelets 293,000. Sodium 132. PROBLEM LIST: 1. Chronic obstructive pulmonary disease with possible pneumonia. She is on breathing treatments and antibiotics. She is actually getting double coverage, Levaquin and cefepime. She is actually not on any steroids. I may put her on a little bit of steroids intravenously and see how she does. 2. Pneumonia. She is on broad-spectrum antibiotics. Chest x-ray is not really being read as pneumonia as much as possible pulmonary edema. May repeat chest x-ray tomorrow to see if there have been any big changes. 3. Mechanical valve. She is on Coumadin, which we may decrease a little bit because she is supratherapeutic, and we will continue to follow. DISPOSITION: Pending clinical status; probably home in 1 to 2 days. cc: Vijay Delong MD
[2019-10-25] MEDS ORDERED: SYMBICORT 160/4.5 MICROGM INHALER INH SCH (19:30)
[2019-10-25] MEDS ORDERED: PRAVACHOL PO SCH (21:00)
[2019-10-25] MEDS ORDERED: COUMADIN PO SCH ×2 (21:00)
[2019-10-25] MEDS: ELAVIL PO SCH (22:11)
[2019-10-25] MEDS: DESYREL PO SCH (22:11)
[2019-10-25] MEDS: COUMADIN PO SCH (22:40)
[2019-10-25] MEDS: PRAVACHOL PO SCH (22:40)
[2019-10-26] MEDS: DUONEB (A & A) INH SCH ×4 (03:21→21:15)
[2019-10-26] MEDS: SOLU-MEDROL IV SCH ×2 (06:23→16:54)
[2019-10-26] MEDS: PRILOSEC PO SCH (06:23)
[2019-10-26 06:57] LABS: HEMATOCRIT 31.8 % (37.0-47.0); HEMOGLOBIN 9.9 g/dL (12.0-16.0); IMM GRAN# 0.03 X1000 (0.0-0.04); IMM GRAN% 0.3 % (0.0-0.5); LYMPH# 0.52 X1000 (1.2-3.4); LYMPH% 4.7 % (20.5-51.1); MCH 24.6 PG (27-31); MCHC 31.1 g/dL (33-37); MCV 78.9 FL (81-99); MONO# 0.62 X1000 (0.11-0.59); MONO% 5.6 % (1.7-9.3); MPV 11.4 FL (7.4-10.4); NEUT# 9.86 X1000 (1.4-6.5); NEUT% 89.4 % (42.2-75.2); PLT 328 X1000 (130-400); RBC 4.03 XMIL (4.2-5.4); RDW 17.3 % (11.5-14.5); WBC 11.03 X1000 (4.8-10.8)
[2019-10-26 07:03] LABS: INR 2.79; PROTIME 30.2 Seconds (11.0-16.0)
[2019-10-26 07:08] LABS: AGAP 13; BUN 32 mg/dL (8-22); CHLORIDE 97 mmol/L (98-107); COSMO 278; CREATININE 0.8 mg/dL (0.5-0.9); ESTIMATED GFR > 60; GLUCOSE 125 mg/dL (70-104); POTASSIUM 4.4 mmol/L (3.5-5.1); SODIUM 135 mmol/L (136-145); TCO2 25 mmol/L (25-35)
--- NOTE | 2019-10-26 08:43 | Diag Imaging Result Doc PS360 ---
EXAM: CHEST-2 VIEWS 10/26/2019 HISTORY: hypoxia TECHNIQUE: PA and lateral chest COMMENT: There are Yue B lines. The lungs are hyperinflated. There is an aortic valve prosthesis. There are sternotomy wires. Compared to 10/24/2019 the interstitial opacities appear slightly worse. The hyperinflation the lungs is also worse. IMPRESSION: Worsened hyperinflation and interstitial pulmonary edema. Electronically signed by Bill Dominguez 10/26/2019 8:41 AM
[2019-10-26] MEDS ORDERED: BROVANA NEB ONE (08:44)
[2019-10-26] MEDS: BROVANA NEB INH SCH ×2 (09:15→21:15)
[2019-10-26] MEDS: VITAMIN B-12 PO SCH (10:30)
[2019-10-26] MEDS: ULTRAM PO SCH ×3 (10:31→16:53)
[2019-10-26] MEDS: LASIX PO SCH (10:31)
[2019-10-26] MEDS: LOPRESSOR PO SCH ×2 (10:31→21:02)
[2019-10-26] MEDS: ASPIRIN EC PO SCH (10:32)
[2019-10-26] MEDS: MAXIPIME 2 GM/NS 2 GM/100 ML IVPB IV SCH (11:27)
[2019-10-26] MEDS: LASIX IV SCH (17:38)
--- NOTE | 2019-10-26 18:59 | PROGRESS NOTE ---
DATE: 10/26/2019 SUBJECTIVE: She is breathing better. She looks better. OBJECTIVE: Vital signs: Blood pressure 111/65, heart rate 91, respiratory rate 18, temperature 97.9 degrees, 95% on 2 L. Cardiovascular: Regular rate and rhythm. Pulmonary: Bilateral breath sounds, clear to auscultation. GI: Soft, nontender, and nondistended. Bowel sounds are positive. LABORATORY DATA: White count 11, hemoglobin and hematocrit 9 and 31, platelets 328,000. Sodium 135. PROBLEM LIST: 1. Chronic obstructive pulmonary disease exacerbation. We will continue breathing treatments and steroids. She sounds pretty good. She is on low-dose steroids. She apparently takes Lasix and according to this, there is worsening interstitial edema. 2. Pneumonia. Will continue empiric antibiotics. He is on cefepime and Levaquin which should cover for atypicals. Question if she has heart failure based on her x-ray, although to me it does not look like that much fluid. She had an echocardiogram which showed a bioprosthetic valve in the mitral and a bioprosthetic aortic valve, so I am not quite sure why she is on anticoagulation, because these are not mechanical valves. Maybe she has atrial fibrillation. In any case, no need to repeat her echocardiogram. 3. Mechanical valve. She is on Coumadin, but it does not appear that these are mechanical valves. Her last echocardiogram in September 2019 showed bioprosthetic valves because there was a question of left atrial mass. We will continue to follow. DISPOSITION: Hopefully home in the next 1 to 2 days. cc: Vijay Delong MD
[2019-10-26] MEDS: DESYREL PO SCH (21:00)
[2019-10-26] MEDS: PRAVACHOL PO SCH (21:00)
[2019-10-26] MEDS: ELAVIL PO SCH (21:01)
[2019-10-26] MEDS: COUMADIN PO SCH (21:01)
[2019-10-27] MEDS: LEVAQUIN 500 MG/D5W 500 MG/100 ML IVPB IV SCH (02:51)
[2019-10-27] MEDS: DUONEB (A & A) INH SCH ×4 (03:15→21:21)
[2019-10-27] MEDS: SOLU-MEDROL IV SCH ×3 (03:53→17:55)
[2019-10-27] MEDS: MAXIPIME 2 GM/NS 2 GM/100 ML IVPB IV SCH ×3 (03:53→17:55)
[2019-10-27] MEDS: PRILOSEC PO SCH (06:52)
[2019-10-27 07:05] LABS: HEMATOCRIT 30.2 % (37.0-47.0); HEMOGLOBIN 9.6 g/dL (12.0-16.0); IMM GRAN# 0.03 X1000 (0.0-0.04); IMM GRAN% 0.3 % (0.0-0.5); LYMPH# 0.44 X1000 (1.2-3.4); LYMPH% 3.8 % (20.5-51.1); MCH 24.9 PG (27-31); MCHC 31.8 g/dL (33-37); MCV 78.4 FL (81-99); MONO# 0.73 X1000 (0.11-0.59); MONO% 6.4 % (1.7-9.3); MPV 11.5 FL (7.4-10.4); NEUT# 10.27 X1000 (1.4-6.5); NEUT% 89.5 % (42.2-75.2); PLT 304 X1000 (130-400); RBC 3.85 XMIL (4.2-5.4); RDW 17.2 % (11.5-14.5); WBC 11.47 X1000 (4.8-10.8)
[2019-10-27 07:22] LABS: AGAP 12; BUN 38 mg/dL (8-22); CALCIUM 9.5 mg/dL (8.8-10.2); CHLORIDE 96 mmol/L (98-107); COSMO 280; CREATININE 0.8 mg/dL (0.5-0.9); ESTIMATED GFR > 60; GLUCOSE 119 mg/dL (70-104); POTASSIUM 4.2 mmol/L (3.5-5.1); SODIUM 135 mmol/L (136-145); TCO2 27 mmol/L (25-35)
[2019-10-27 07:48] LABS: LYMPHS 8 % (21-51); MONO 10 % (1-9); SEGS 82 % (42-75)
[2019-10-27] MEDS ORDERED: VITAMIN D PO SCH (09:00)
[2019-10-27] MEDS: VITAMIN B-12 PO SCH (09:11)
[2019-10-27] MEDS: ULTRAM PO SCH ×3 (09:11→16:22)
[2019-10-27] MEDS: LASIX IV SCH (09:11)
[2019-10-27] MEDS: ASPIRIN EC PO SCH (09:12)
[2019-10-27] MEDS: LOPRESSOR PO SCH ×2 (09:12→21:39)
[2019-10-27] MEDS: BROVANA NEB INH SCH ×2 (09:32→21:21)
--- NOTE | 2019-10-27 14:19 | PROGRESS NOTE ---
DATE: 10/27/2019 INTERVAL HISTORY: The patient's shortness of breath is improving, but still some pretty significant wheezing and dyspnea on exertion. No new complaints. No acute events overnight. REVIEW OF SYSTEMS: Twelve-point review of systems negative except as per interval history. LABS: WBC 11.4, hemoglobin 9.6, hematocrit 30.2. Sodium 135, potassium 4.2, BUN 38, creatinine 0.8, glucose 119. VITALS: T-max 98.7 degrees, pulse 78, respirations 16, blood pressure 125/70, O2 saturation 100% on 2 L by nasal cannula. PHYSICAL EXAMINATION: General: In no acute distress. Vitals: As above. HEENT/Neck: Normocephalic, atraumatic. Moist mucous membranes. No cervical adenopathy. Cardiovascular: Regular rate and rhythm. No murmurs noted. Pulmonary: Diffuse rhonchi. Mild expiratory wheezing. Slightly decreased air entry throughout. Abdomen: Soft, nontender, nondistended. Bowel sounds positive. Extremities: Peripheral pulses intact. No clubbing or cyanosis. Neurologic: Cranial nerves grossly intact. No focal deficits identified. Psychiatric: Normal mood and affect. Awake, alert, oriented x3. ASSESSMENT AND PLAN: 1. Chronic obstructive pulmonary disease exacerbation. Appears to be improving. Continue steroids and breathing treatments and monitor. 2. Pneumonia. On empiric antibiotics with cefepime and Levaquin which we will continue. If she continues to improve may be able to transition to oral antibiotics in the near future. 3. Bioprosthetic aortic and mitral valves noted. The patient on Coumadin. 4. Hyponatremia, mild, stable. Will monitor labs. 5. Elevated BNP. Recent echo within the last month essentially unremarkable. [facility]
[2019-10-27] MEDS: PRAVACHOL PO SCH (21:39)
[2019-10-27] MEDS: COUMADIN PO SCH (21:40)
[2019-10-27] MEDS: ELAVIL PO SCH (21:40)
[2019-10-27] MEDS: DESYREL PO SCH (21:40)
[2019-10-28] MEDS: LEVAQUIN 500 MG/D5W 500 MG/100 ML IVPB IV SCH (02:55)
[2019-10-28] MEDS: DUONEB (A & A) INH SCH ×2 (03:43→09:08)
[2019-10-28] MEDS: SOLU-MEDROL IV SCH (05:54)
[2019-10-28] MEDS: MAXIPIME 2 GM/NS 2 GM/100 ML IVPB IV SCH (05:54)
[2019-10-28] MEDS: PRILOSEC PO SCH ×2 (05:58→06:09)
[2019-10-28] MEDS: BROVANA NEB INH SCH (09:08)
[2019-10-28] MEDS: ULTRAM PO SCH ×2 (09:48→12:38)
[2019-10-28] MEDS: VITAMIN B-12 PO SCH (09:49)
[2019-10-28] MEDS: LASIX IV SCH (09:49)
[2019-10-28] MEDS: ASPIRIN EC PO SCH (09:49)
[2019-10-28] MEDS: LOPRESSOR PO SCH (09:49)
[2019-10-28 11:23] VITALS: BP 117/74
--- NOTE | 2019-10-28 20:50 | DISCHARGE SUMMARY ---
ADMISSION DATE: 10/24/2019 DISCHARGE DATE: 10/28/2019 DISCHARGE DIAGNOSES: 1. Chronic obstructive pulmonary disease exacerbation. 2. Pneumonia. 3. Bioprosthetic aortic and mitral valves. 4. Hyponatremia. 5. Elevated BNP next. HOSPITAL COURSE: The patient presented with 2-day history of progressive shortness of breath with productive cough. She was found to have wheezing and decreased air entry consistent with COPD exacerbation. Chest x-ray showed emphysema with mild infiltrates which were favored to represent pneumonia, as patient had leukocytosis, white count 15, and cough productive of green sputum. She never had a true fever, but did have a mildly elevated temperature just after she came in to 100.0. She was started on steroids, nebulizers and antibiotics with Levaquin. She improved slowly but steadily. On the day of discharge, her wheezing had resolved entirely. She was moving a little bit better and saturating well on room air. She did have a mildly elevated BNP at 690, but had no lower extremity edema and had recent echocardiogram approximately a month ago, which showed normal EF, no major valvular issues, no significant issues with her bioprosthetic valves. As patient's symptoms were largely resolved and she was saturating well on room air, even with ambulation, it was decided she was stable to discharge home on oral antibiotic and steroid. She had minimally low sodium, which remained essentially stable was never a significant issue. DISCHARGE VITAL SIGNS: Temperature 97.9 degrees, pulse 87, respirations 16, blood pressure 117/74, O2 saturation 97% on room air. DISCHARGE DIET: Regular. DISCHARGE MEDICATIONS: Coumadin 5 mg p.o. at bedtime, amitriptyline 100 mg p.o. at bedtime, pravastatin 20 mg p.o. at bedtime, aspirin 81 mg p.o. daily, trazodone 50 mg as previously prescribed, Lasix 20 mg p.o. daily, Toprol as previously prescribed, omeprazole 20 mg p.o. daily, Symbicort inhaler 1 puff inhaled b.i.d., tramadol as previously prescribed by Combivent Respimat inhaled q.4 hours as needed, Levaquin 7 750 mg p.o. daily for 5 days, Medrol Dosepak as 4 mg as directed. FOLLOWUP AND PLAN: The patient discharging home on a short course for Levaquin to finish treatment of mild pneumonia. Medrol Dosepak in addition to her previous inhalers for to finish treatment of COPD exacerbation. INR has been okay on Coumadin and Levaquin here, but recommend patient get INR rechecked within 2 to 3 days of discharge to make sure that is staying okay. The patient is to follow up with PCP as well. TIME SPENT: Greater than 30 minutes spent arranging discharge and counseling.
== END 2019-10-28 13:14 | disposition home health service (06) | DRG 871 ==
LOC: SUPCPDRO → ED 17:44 → EDIPHOLD 23:28 → SUATTDRO 23:28 → 4N 10-25 08:05
PROVIDERS: ATTEND Internal Medicine